=== PATIENT | male | born 1960 | race Hispanic/Latino ===

== ENCOUNTER 2021-01-19 16:52 | Emergency (ER) | payer BC ==
[2021-01-19] MEDS ORDERED: ONDANSETRON HCL 4 MG/2 ML VIAL ONE (17:36)
[2021-01-19] MEDS ORDERED: MORPHINE 4 MG SYG (4MG/1ML) ONE (17:37)
[2021-01-19] MEDS ORDERED: CEFAZOLIN SODIUM 1 GM VIAL ONE (17:37)
== END 2021-01-19 18:44 | disposition home or self-care (01) ==
LOC: EDH 16:52
DX: S61.012A Laceration without foreign body of left thumb without damage to nail, initial encounter (principal); I10 Essential (primary) hypertension; Z72.0 Tobacco use; W23.0XXA Caught, crushed, jammed, or pinched between moving objects, initial encounter; Y93.H2 Activity, gardening and landscaping; Y92.096 Garden or yard of other non-institutional residence as the place of occurrence of the external cause; Y99.8 Other external cause status
CPT/HCPCS: 64450; 73130; 96365; 96375; 99284; J0690; J2270; J2405